=== PATIENT | female | born 1995 | race Caucasian/White ===

== ENCOUNTER 2020-11-29 18:35 | Emergency (ER) | payer OTHER ==
[~2020-11-29] VITALS: Ht 157.5 cm; Wt 72.6 kg
[2020-11-29 18:41] VITALS: BP_SYST 141
--- NOTE | 2020-11-29 18:45 | NUR ---
Patient to ER bed 04 to gown for evaluation. Side rails up.
--- NOTE | 2020-11-29 18:48 | NUR ---
PT CAME IN FROM HOME FOR 3 LACS TO LEFT HAND, TWO TO PALM AND ONE TO THUMB. NO BLEEDING AT THIS TIME, APPEAR MOSTLY SUPERFICIAL. STATES SHE WAS CRAFTING WITH GLASS PIECES WHEN SHE CUT SELF. AAOX4, V/S STABLE, 27 WEEKS PER PT.
--- NOTE | 2020-11-29 18:50 | NUR ---
ER DR. FIGUEROA AT THE BEDSIDE EXAMINING PT
[2020-11-29 19:11] VITALS: BP_SYST 132
--- NOTE | 2020-11-29 19:12 | NUR ---
Patient given written and verbal discharge instructions and verbalizes understanding. ER MD discussed with patient the results and treatment provided. Patient in stable condition. ID arm band removed. Patient educated on pain management and to follow up with PMD. Pain Scale 0/10. Opportunity for questions provided and answered. Medication side effect fact sheet provided.
== END 2020-11-29 19:11 | disposition home or self-care (01) ==
LOC: SED 18:35
DX: O9A.212 Injury, poisoning and certain other consequences of external causes complicating pregnancy, second trimester (principal); S61.412A Laceration without foreign body of left hand, initial encounter; J45.909 Unspecified asthma, uncomplicated; Z3A.27 27 weeks gestation of pregnancy; W25.XXXA Contact with sharp glass, initial encounter; Y93.89 Activity, other specified; Y92.89 Other specified places as the place of occurrence of the external cause; Y99.8 Other external cause status
CPT/HCPCS: 99283

== ENCOUNTER 2023-05-16 10:10 | Emergency (ER) | payer OTHER ==
[~2023-05-16] VITALS: Ht 157.5 cm; Wt 70.3 kg
[~2023-05-16 10:10] MED LIST: OXYC-128 PO
[2023-05-16 10:27] VITALS: BP_SYST 121; PULSE 98; RESP 18; TEMP 98; O2SAT 99
[2023-05-16] MEDS ORDERED: CYCL10TA24 PO (10:49)
[2023-05-16] MEDS ORDERED: LIDO1ADH77 TP (10:49)
[2023-05-16] MEDS ORDERED: IBUP-1969 PO (10:49)
[2023-05-16 11:21] VITALS: BP_SYST 121; PULSE 98; RESP 18; TEMP 98; O2SAT 99
== END 2023-05-16 11:19 | disposition home or self-care (01) ==
LOC: SED 10:10
DX: S16.1XXA Strain of muscle, fascia and tendon at neck level, initial encounter (principal); M54.12 Radiculopathy, cervical region; J45.909 Unspecified asthma, uncomplicated; Z79.899 Other long term (current) drug therapy; X58.XXXA Exposure to other specified factors, initial encounter; Y93.89 Activity, other specified; Y92.89 Other specified places as the place of occurrence of the external cause; Y99.8 Other external cause status
CPT/HCPCS: 99283

== ENCOUNTER 2023-10-20 13:06 | Emergency (ER) | payer OTHER ==
[~2023-10-20] VITALS: Ht 157.5 cm; Wt 65.8 kg
[2023-10-20 13:06] VITALS: BP_SYST 129; PULSE 89; RESP 18; TEMP 97.3; O2SAT 100
[~2023-10-20 13:06] MED LIST changes: +CYCL10TA24 PO; +IBUP-1969 PO; +LIDO1ADH77 TP
[2023-10-20] MEDS ORDERED: NABU-140 PO ×3 (14:47→15:04)
[2023-10-20] MEDS ORDERED: METH-776 PO ×3 (14:47→15:04)
== END 2023-10-20 14:59 | disposition home or self-care (01) ==
LOC: SED 13:06
DX: M54.12 Radiculopathy, cervical region (principal); R51.9 Headache, unspecified; I10 Essential (primary) hypertension; J45.909 Unspecified asthma, uncomplicated; Z79.899 Other long term (current) drug therapy
CPT/HCPCS: 70450-TC; 76376; 99284

== ENCOUNTER 2024-07-04 16:33 | Emergency (ER) | payer OTHER ==
[~2024-07-04] VITALS: Ht 157.5 cm; Wt 68.0 kg
[~2024-07-04 16:33] MED LIST changes: +METH-776 PO; +NABU-140 PO
[2024-07-04 16:49] VITALS: BP_SYST 153; PULSE 101; RESP 20; TEMP 97.6; O2SAT 97
[2024-07-04 18:28] LABS: BASOPHILS % (AUTO) 0.2 % (0.0-2.0); EOSINOPHILS # (AUTO) 0.1 K/uL (0.0-0.4); EOSINOPHILS % (AUTO) 0.6 % (0.0-4.0); HEMATOCRIT 44.8 % (36-48); HEMOGLOBIN 15.3 g/dL (12.0-16.0); LYMPHOCYTES # (AUTO) 2.5 K/uL (1.0-5.5); LYMPHOCYTES % (AUTO) 22.5 % (20.5-51.5); MEAN CORPUSCULAR HEMOGLOBIN 30 pg (27-31); MEAN CORPUSCULAR HGB CONC 34 % (32-36); MEAN CORPUSCULAR VOLUME 89 fL (79.0-98.0); MONOCYTES # (AUTO) 0.7 K/uL (0.0-1.0); MONOCYTES % (AUTO) 6.1 % (1.7-9.3); NEUTROPHILS # (AUTO) 7.9 K/uL (1.8-7.7); NEUTROPHILS % (AUTO) 70.6 % (40.0-70.0); PLATELET COUNT (AUTO) 281 K/uL (130-430); RED BLOOD CELL COUNT(AUTO) 5.02 MIL/uL (4.2-6.2); RED CELL DISTRIBUTION WIDTH 13.5 % (9.0-15.0); WHITE BLOOD COUNT (AUTO) 11.3 K/uL (4.8-10.8)
[2024-07-04 18:44] LABS: INR 0.9 (0.8-1.2); PROTHROMBIN TIME 9.9 SECS (9.5-12.5)
[2024-07-04 18:55] LABS: CALCIUM 9.7 mg/dL (8.4-11.0); CREATININE 1.03 mg/dL (0.55-1.30); POTASSIUM 4.5 mmol/L (3.5-5.1)
== END 2024-07-04 19:55 | disposition home or self-care (01) ==
LOC: SED 16:33
DX: S60.021A Contusion of right index finger without damage to nail, initial encounter (principal); J45.909 Unspecified asthma, uncomplicated; Z79.899 Other long term (current) drug therapy; Z79.2 Long term (current) use of antibiotics; W26.0XXA Contact with knife, initial encounter; Y93.89 Activity, other specified; Y92.89 Other specified places as the place of occurrence of the external cause; Y99.8 Other external cause status
CPT/HCPCS: 36415; 73140; 80048; 83605; 85025; 85610; 85730; 99284